=== PATIENT | female | born 1995 | race American Indian/Alaskan Native ===

== ENCOUNTER 2018-12-15 23:34 | Emergency (ER) | payer MEDICAID, OTHER ==
[~2018-12-15 23:34] MED LIST: LACTATED RINGERS 500 ML IV ONE
--- NOTE | 2018-12-16 | Ultrasound Report ---
FINAL REPORT PROCEDURE: US OB BPP WO NON-STRESS TECHNIQUE: Sonographic evaluation for breathing, movement, tone, and amniotic flui d volume was performed. CPT 37831 HISTORY: FALL COMPARISON: No prior studies are available for comparison. FINDINGS: Amniotic fluid volume: Normal-score 2. At least one vertical pocket > 2 cm or more in vertical axi s. breathing: Normal-score 2. movement: Normal-score 2. tone: Normal. Score: 8 of 8. IMPRESSION: Normal biophysical profile.
--- NOTE | 2018-12-16 | Ultrasound Report ---
FINAL REPORT PROCEDURE: US OB LIMITED TECHNIQUE: Real-time limited sonographic examination was performed for evaluation of placenta and fl uid volume for each fetus with image documentation (1 or more fetuses). CPT 42857 HISTORY: R/O abruption, BPP, DENISSE COMPARISON: No prior studies are available for comparison. FINDINGS: There is single intrauterine gestation with cephalic presentation. Amniotic fluid index is 14.2 centi meters. Placenta is anterior with grade 1 maturity. heart rate is 137 beats per minute. IMPRESSION: Single live intrauterine gestation without any evidence of placental abruption. Amniotic fluid index is 14.2 centimeters.
[2018-12-16 00:55] VITALS: BP 132/90
[2018-12-16] MEDS ORDERED: TYLENOL PO PRN (00:57)
[2018-12-16] MEDS ORDERED: TYLENOL PO ONE (01:00)
[2018-12-16] MEDS ORDERED: TYLENOL ONE (01:01)
== END 2018-12-16 02:00 | disposition left against medical advice (07) ==
LOC: ED 23:34 → TRG 23:34 → EDSTATUS 23:58 → ED 12-16 02:00
DX: O26.893 Other specified pregnancy related conditions, third trimester (principal); Z53.21 Procedure and treatment not carried out due to patient leaving prior to being seen by health care provider
CPT/HCPCS: 59025; 76815; 76819; J7120

== ENCOUNTER 2019-01-16 02:02 | Inpatient (IN) | payer OTHER ==
[2019-01-16] MEDS ORDERED: MINERAL OIL PO PRN ×2 (05:37→07:26)
[2019-01-16] MEDS ORDERED: BRETHINE SUB-Q PRN ×2 (05:37→07:26)
[2019-01-16] MEDS ORDERED: BRETHINE IVP PRN ×2 (05:37→07:26)
[2019-01-16] MEDS ORDERED: STADOL IV PRN (05:37)
[2019-01-16] MEDS ORDERED: PITOCin/NS 20 UNIT/1000ML DRIP 20 UNITS/1,000 ML BAG IV SCH ×3 (06:00→15:00)
[2019-01-16] MEDS: LACTATED RINGERS 1,000 ML IV SCH ×3 (07:17→11:50)
[2019-01-16] MEDS ORDERED: SUBLIMAZE IV PRN (07:26)
[2019-01-16] MEDS ORDERED: ZOFRAN IV PRN ×2 (07:26→14:55)
--- NOTE | 2019-01-16 07:26 | History and Physical Report ---
History of Present Illness Date of examination: 01/16/19 Chief complaint: Contractions History of present illness: Pt is a 23yo BF EDC 01/29/19; EGA 38 0/7 weeks presents to L&D complaining of leaking fluid and RUC's q 3-5 mins. She received care at [facility] since 22 weeks and co-managed with [facility] for Obesity. records are not available and GBS is unknown. Past History Past Medical History: no pertinent history Past Surgical History: no surgical history Family/Genetic History: none Social history: no significant social history, single - Obstetrical History Expected Date of Delivery: 01/30/19 Actual Gestation: 38 Week(s) 0 Day(s) : 1 Medications and Allergies Allergies Allergy/AdvReac Type Severity Reaction Status Date / Time No Known Allergies Allergy Verified 01/16/19 02:33 Active Meds: Active Medications Butorphanol Tartrate (Stadol) 2 mg IV Q2H PRN PRN Reason: Pain , Severe (7-10) Last Admin: 01/16/19 07:16 Dose: 2 mg Documented by: Ephedrine Sulfate (Ephedrine Sulfate) 10 mg IV Q2M PRN PRN Reason: Hypotension Lactated Ringer's (Lactated Ringers) 1,000 mls @ 125 mls/hr IV DIRECT REJI Last Admin: 01/16/19 07:17 Dose: 125 mls/hr Documented by: Oxytocin/Sodium Chloride (Pitocin/Ns 20 Unit/1000ml Drip) 20 units in 1,000 mls @ 125 mls/hr IV DIRECT REJI Mineral Oil (Mineral Oil) 30 ml PO QHS PRN PRN Reason: Constipation Terbutaline Sulfate (Brethine) 0.25 mg SUB-Q ONCE PRN PRN Reason: Hyperstimulation/Hypertonicity Terbutaline Sulfate (Brethine) 0.25 mg IVP ONCE PRN PRN Reason: Hyperstimulation/Hypertonicity Review of Systems All systems: negative - Vital Signs Vital signs: Vital Signs Pulse BP 97 H 129/76 01/16/19 02:31 01/16/19 02:31 Temp Pulse Resp BP Pulse Ox 97.8 F 101 H 18 132/76 01/16/19 07:07 01/16/19 07:07 01/16/19 07:07 01/16/19 07:07 - Physical Exam Breasts: Positive: deferred Cardiovascular: Regular rate Lungs: Positive: Clear to auscultation Abdomen: Positive: normal appearance Genitourinary (Female): Positive: normal external genitalia Uterus: Positive: enlarged Extremities: Positive: normal - Obstetrical FHR: category 1 Uterine Contraction Monitor Mode: External Cervical Dilatation: 3 (per nurse) Cervical Effacement Percentage: 90 (per nurse) station: -2 Uterine Contraction Pattern: Regular Uterine Tone Measurement Phase: Contraction Uterine Contraction Intensity: Moderate Results Result Diagrams: 01/16/19 05:37 All other labs normal. Assessment and Plan - Patient Problems (1) 38 weeks gestation of Onset Date: 01/16/19 Current Visit: Yes Status: Acute Plan to address problem: A: IUP @ 38 0/7 weeks in labor Unknown GBS P: Admit to L&D for expectant vaginal delivery IV Ampicillin Obtain records. (2) Morbid obesity with BMI of 50.0-59.9, adult Onset Date: 01/16/19 Current Visit: Yes Status: Chronic
[2019-01-16] MEDS ORDERED: AMPICILLIN/NS 2 GM/100 ML 2 GM/100 ML BAG IV ONE (08:00)
[2019-01-16] MEDS ORDERED: LACTATED RINGERS 1,000 ML IV SCH (08:00)
[2019-01-16] MEDS ORDERED: PITOCin/NS 30 UNIT/500ML 30 UNITS/500 ML BAG IV SCH ×2 (08:00)
[2019-01-16] MEDS ORDERED: XYLOCAINE 2% INFILTRATI ONE (08:00)
[2019-01-16 08:29] LABS: Hematocrit 34.2 % (30.3-42.9); Hemoglobin 11.3 gm/dl (10.1-14.3); Mean Corpuscular HGB Conc 33 % (30-34); Mean Corpuscular Volume 88 fl (79-97); Platelet Count 293 K/mm3 (140-440)
[2019-01-16 08:31] LABS: Red Cell Distribution Width 21.6 % (13.2-15.2)
[2019-01-16] MEDS ORDERED: fentaNYL-BUPIV 2 MCG/ML-0.125% 200 MCG/100 ML BAG EPIDURAL ONE (08:54)
[2019-01-16] MEDS ORDERED: fentaNYL-BUPIV 2 MCG/ML-0.125% 200 MCG/100 ML BAG EPIDURAL SCH (09:00)
[2019-01-16] MEDS ORDERED: NARCAN 2 MG/2 ML IV PRN (09:15)
--- NOTE | 2019-01-16 09:15 | Anesthesia Consultation ---
Anesthesia Consult and Med Hx Date of service: 01/16/19 - Airway Anesthetic Teeth Evaluation: Good ROM Head & Neck: Adequate Mental/Hyoid Distance: Adequate Mallampati Class: Class III Intubation Access Assessment: Possibly Difficult - Pulmonary Exam CTA: Yes - Cardiac Exam Cardiac Exam: RRR - Pre-Operative Health Status ASA Pre-Surgery Classification: ASA3 Proposed Anesthetic Plan: Epidural - Pulmonary Hx Asthma: No - Cardiovascular System Hx Hypertension: No - Central Nervous System Hx Seizures: No Hx Psychiatric Problems: No - Endocrine Hx Renal Disease: No Hx Hypothyroidism: No Hx Hyperthyroidism: No - Hematic Hx Sickle Cell Disease: No - Other Systems Hx Alcohol Use: No
[2019-01-16] MEDS ORDERED: AMPICILLIN/NS 1 GM/50 ML 1 GM/50 ML BAG IV SCH (12:00)
--- NOTE | 2019-01-16 14:53 | Procedure Note ---
OB Delivery Note - Delivery Date of Delivery: 01/16/19 Surgeon: EUSEBIA FORD Estimated blood loss: 200cc - Vaginal Delivery presentation: vertex Delivery position: OA Intrapartum events: PROM->1hr before delivery Delivery induction: none Delivery augmentation: pitocin Delivery monitor: external FHT, external uterine Route of delivery: Delivery placenta: spontaneous Delivery cord: 3 umbilical vessels Episiotomy: none Delivery laceration: 2nd degree (perineal) Delivery repair: vicryl Anesthesia: epidural Delivery comments: Infant delivered OA and placed on Mom's chest for [id number] bonding and delayed cord clamping, cut by Grandma - Infant A at 1 minute: 8 at 5 minutes: 9 Infant Gender: Female (3510gms)
[2019-01-16] MEDS ORDERED: TUCKS PAD TP PRN (14:55)
[2019-01-16] MEDS ORDERED: PHENERGAN PO PRN (14:55)
[2019-01-16] MEDS ORDERED: MILK OF MAGNESIA PO PRN (14:55)
[2019-01-16] MEDS ORDERED: NORCO 5/325 PO PRN (14:55)
[2019-01-16] MEDS ORDERED: TYLENOL PO PRN (14:55)
[2019-01-16] MEDS ORDERED: DERMOPLAST TP PRN (14:55)
[2019-01-16] MEDS ORDERED: PHENERGAN PR PRN (14:55)
[2019-01-16] MEDS ORDERED: BENADRYL PO PRN (14:55)
[2019-01-16] MEDS ORDERED: LANSINOH TP PRN (14:55)
[2019-01-16] MEDS ORDERED: DULCOLAX PR PRN (14:55)
[2019-01-16] MEDS ORDERED: SODIUM CHLORIDE FLUSH SYRINGE 10 ML IV NR (15:00)
[2019-01-16] MEDS: FEOSOL PO SCH (22:08)
[2019-01-16] MEDS: COLACE PO SCH (22:08)
[2019-01-16] MEDS: IBUPROFEN PO SCH (23:35)
[2019-01-17] MEDS: IBUPROFEN PO SCH ×2 (05:44→22:40)
[2019-01-17 06:34] LABS: Hematocrit 31.2 % (30.3-42.9); Hemoglobin 10.3 gm/dl (10.1-14.3)
--- NOTE | 2019-01-17 09:38 | Progress Note ---
Assessment and Plan - Patient Problems (1) 38 weeks gestation of Onset Date: 01/16/19 Current Visit: Yes Status: Resolved (2) Morbid obesity with BMI of 50.0-59.9, adult Onset Date: 01/16/19 Current Visit: Yes Status: Chronic (3) (normal spontaneous vaginal delivery) Onset Date: 01/17/19 Current Visit: Yes Status: Resolved Plan to address problem: A: S/P - PPD #1 Doing well Asymptomatic anemia - stable P: May go home tomorrow. Subjective - Subjective Date of service: 01/17/19 Principal diagnosis: s/p - PPD #1 Interval history: Pt is feeling well without complaints. Bleeding has improved. Patient reports: appetite normal, voiding normally, pain well controlled, flatus, ambulating normally, no dizzy ambulation, no nauseated [place]: doing well, bottle feeding Objective - Vital Signs Latest vital signs: Vital Signs Temp Pulse Resp BP BP Pulse Ox 01/17/19 08:28 97.5 F L 98 H 18 127/83 99 01/17/19 00:10 98.4 F 105 H 16 113/63 92 01/16/19 16:29 97.8 F 22 126/84 01/16/19 15:31 112 H 151/78 01/16/19 15:16 107 H 152/72 01/16/19 15:02 123 H 132/78 01/16/19 14:46 127 H 126/84 01/16/19 14:17 114 H 129/67 01/16/19 14:00 98.9 F 16 01/16/19 13:46 95 H 145/86 01/16/19 13:31 100 H 134/80 01/16/19 13:16 98 H 136/79 01/16/19 13:01 95 H 127/73 01/16/19 12:47 101 H 138/92 01/16/19 12:33 100 H 118/82 01/16/19 12:17 89 121/74 01/16/19 12:02 108 H 130/76 01/16/19 12:00 97.9 F 16 01/16/19 11:48 105 H 117/63 01/16/19 11:31 107 H 131/65 01/16/19 11:17 100 H 122/73 01/16/19 11:01 95 H 131/81 01/16/19 10:55 16 01/16/19 10:48 96 H 132/82 01/16/19 10:39 90 01/16/19 10:31 79 95 01/16/19 10:16 92 H 94 01/16/19 10:01 94 H 125/79 01/16/19 10:00 98.3 F 95 H 16 96 01/16/19 09:59 81 126/73 01/16/19 09:57 83 123/74 01/16/19 09:55 88 125/76 95 01/16/19 09:53 90 118/76 93 01/16/19 09:51 98 H 111/75 01/16/19 09:50 96 H 96 01/16/19 09:49 85 108/71 01/16/19 09:47 89 104/61 01/16/19 09:45 104 H 100/57 97 01/16/19 09:43 96 H 101/58 01/16/19 09:41 96 H 100/51 01/16/19 09:40 99 H 97 01/16/19 09:39 95 H 108/55 01/16/19 09:38 90 139/75 01/16/19 09:35 93 H 98 Intake and Output 01/16/19 01/17/19 01/17/19 22:59 06:59 14:59 Intake Total 300 400 Output Total 1400 800 Balance -1100 -400 Intake: Oral 200 Intake, Free Water 300 200 Output: Urine 1400 800 Void 1400 800 Other: Total, Intake Amount 200 Total, Output Amount 900 800 # Voids Void 1 1 - Exam Breasts: Present: deferred Abdomen: Present: normal appearance, soft Uterus: Present: normal, firm, fundal height below umbilicus Extremities: Present: normal - Labs Labs: Laboratory Tests 01/16/19 01/16/19 01/16/19 05:37 05:37 12:49 WBC 13.1 H RBC 3.90 Hgb 11.3 Hct 34.2 MCV 88 MCH 29 MCHC 33 RDW 21.6 H Plt Count 293 RPR Nonreactive Blood Type B POSITIVE Antibody Screen Negative 01/17/19 05:46 WBC RBC Hgb 10.3 Hct 31.2 MCV MCH MCHC RDW Plt Count RPR Blood Type Antibody Screen
--- NOTE | 2019-01-17 09:39 | Discharge Summary ---
Providers - Providers Date of Admission: 01/16/19 08:33 Date of discharge: 01/18/19 Attending physician: EUSEBIA FORD Primary care physician: EUSEBIA FORD Hospitalization Reason for admission: active labor, rupture of membranes, IUP at term Delivery: Episiotomy: none Laceration: 2nd degree (perineal) Incision: normal Other procedures: none complications: none Discharge diagnosis: IUP at term delivered [place] baby: female Hospital course: Unremarkable. Condition at discharge: Good Disposition: DC-01 TO HOME OR SELFCARE - Discharge Diagnoses (1) 38 weeks gestation of Status: Resolved (2) Morbid obesity with BMI of 50.0-59.9, adult Status: Chronic (3) (normal spontaneous vaginal delivery) Status: Resolved Plan - Discharge Medications Prescriptions: Ferrous Sulfate [Feosol 325 MG tab] 325 mg PO BID #60 tablet Ibuprofen [Motrin 600 MG tab] 600 mg PO Q6H #30 tablet Vit-Fe Fumar-FA [ Vitamin] 1 each PO QDAY #30 tablet - Provider Discharge Summary Activity: routine, no sex for 6 weeks, no heavy lifting 4 weeks, no strenuous exercise Diet: routine Instructions: routine Additional instructions: [] Smoking cessation referral if applicable(refer to patient education folder for contact #) [] Refer to [facility] Booklet Call your doctor immediately for: * Fever > 100.5 * Heavy vaginal bleeding ( >1 pad per hour) * Severe persistent headache * Shortness of breath * Reddened, hot, painful area to leg or breast * Drainage or odor from incision. * Keep incision clean and dry at all times and follow doctor's instructions regarding bathing/showering - Follow up plan Follow up: EUSEBIA FORD MD [Primary Care Provider] - 6 Weeks LIAM ESTRADA NP [Referring] - 6 Weeks
--- NOTE | 2019-01-17 09:42 | Post Anesthesia Evaluation ---
- Post Anesthesia Evaluation Patient Participated: Yes Airway Patent: Yes Stable Respiratory Function: Yes Nausea/Vomiting: No Temp > 96.8F: No Pain Manageable: Yes Adequeate Hydration: Yes Anesthesia Complications: No Block Receding Appropriately: Yes Patient on Ventilator: No
[2019-01-17] MEDS ORDERED: PRENATAL VITAMIN PO SCH (10:00)
[2019-01-17] MEDS ORDERED: M-M-R II VACCINE SUB-Q ONE (14:55)
[2019-01-17] MEDS ORDERED: BOOSTRIX IM ONE (14:55)
[2019-01-17] MEDS: COLACE PO SCH (22:40)
[2019-01-17] MEDS: FEOSOL PO SCH (22:40)
[2019-01-18] MEDS: FEOSOL PO SCH (10:21)
[2019-01-18] MEDS: COLACE PO SCH (10:21)
[2019-01-18] MEDS: IBUPROFEN PO SCH ×2 (12:25→12:27)
[2019-01-18 16:37] VITALS: BP 130/86
== END 2019-01-18 18:05 | disposition home or self-care (01) | DRG 775 ==
LOC: TRG 02:02 → LD 08:33 → OB 16:15
PROVIDERS: ADMIT Obstetrics & Gynecology; ATTEND Obstetrics & Gynecology
PROC: 10E0XZZ Delivery of Products of Conception, External Approach (ICD-10-PCS; principal; 2019-01-16)
PROC: 0KQM0ZZ Repair Perineum Muscle, Open Approach (ICD-10-PCS; 2019-01-16)
PROC: 3E0R3BZ Introduction of Anesthetic Agent into Spinal Canal, Percutaneous Approach (ICD-10-PCS; 2019-01-16)
PROC: 00HU33Z Insertion of Infusion Device into Spinal Canal, Percutaneous Approach (ICD-10-PCS; 2019-01-16)
DX: O42.02 Full-term premature rupture of membranes, onset of labor within 24 hours of rupture (principal); O99.214 Obesity complicating childbirth; O70.1 Second degree perineal laceration during delivery; Z3A.38 38 weeks gestation of pregnancy; Z37.0 Single live birth; E66.01 Morbid (severe) obesity due to excess calories; Z68.43 Body mass index [BMI] 50.0-59.9, adult
CPT/HCPCS: 36415; 59025; 85014; 85018; 85027; 86592; 86850; 86900; 86901; 96360; 96374; G0378; J0290; J0595; J2590; J7120